=== PATIENT | female | born 1990 | race African-American/Black ===

== ENCOUNTER 2020-09-16 06:24 | Inpatient (IN) | payer OTHER ==
[2020-09-16 08:29] LABS: BASO % 0.3 % (0-2.0); EOS % 0.2 % (0-4.5); HEMATOCRIT 30.7 % (32.4-45.2); HEMOGLOBIN 10.5 GM/dL (10.7-15.3); LYMPH % 15.6 % (8-40); MCH 29.4 pg (25.7-33.7); MCHC 34.3 g/dl (32.0-36.0); MEAN CELL VOLUME 85.7 fl (80-96); MONO % 8.8 % (3.8-10.2); NEUT % 75.1 % (42.8-82.8); PLATELET COUNT 351 K/MM3 (134-434); RBC 3.58 M/mm3 (3.60-5.2); RDW 14.6 % (11.6-15.6); WHITE BLOOD COUNT 9.4 K/mm3 (4.0-10.0)
[2020-09-16 08:39] LABS: INR 1.02 (0.83-1.09); PROTHROMBIN TIME (PATIENT) 12.3 SEC (9.7-13.0)
[2020-09-16 08:41] LABS: ACTIVATED PTT 24.1 SECONDS (25.2-36.5)
[2020-09-16] MEDS ORDERED: ELECTROLYTE-148 SOLN 1,000 ML IV SCH (08:45)
[2020-09-16] MEDS ORDERED: OXYTOCIN 30 UNITS in 0.9% NS 30 UNIT/500 ML INFUS.BAG IVPB SCH (08:45)
[2020-09-16 08:51] LABS: CALCIUM 8.8 mg/dL (8.5-10.1)
[2020-09-16 08:52] LABS: ALBUMIN 2.3 g/dl (3.4-5.0)
[2020-09-16 08:55] LABS: CREATININE 0.6 mg/dL (0.55-1.3)
[2020-09-16 08:57] LABS: BILIRUBIN,TOTAL 0.2 mg/dL (0.2-1); TOT PROT 7.4 g/dl (6.4-8.2)
[2020-09-16 10:01] VITALS: BMI 31.8
[2020-09-16 11:53] LABS: HIV INTERPRETATION NEGATIVE (NEGATIVE)
[2020-09-16] MEDS ORDERED: CITRIC ACID/SODIUM CITRATE 30 ML UNIT-DOSE CUP PO ONE (15:49)
[2020-09-16] MEDS ORDERED: KETOROLAC TROMETHAMINE 30 MG/1 ML VIAL ONE ×2 (16:26→17:05)
[2020-09-16] MEDS ORDERED: ONDANSETRON 4 MG/2 ML VIAL ONE ×2 (16:26→17:05)
[2020-09-16] MEDS ORDERED: ceFAZolin SODIUM 1 GM VIAL ONE (17:05)
[2020-09-16] MEDS ORDERED: IBUPROFEN 800 MG/8 ML IJ IVPB PRN (18:16)
[2020-09-16] MEDS ORDERED: METHYLERGONOVINE MALEATE 0.2 MG/1 ML AMP IM PRN (18:16)
[2020-09-16] MEDS ORDERED: SENNOSIDES/DOCUSATE COMBO (SENNA PLUS) TABLET (UD) PO PRN (18:16)
[2020-09-16] MEDS ORDERED: oxyCODONE HCL 5 MG TABLET PO PRN (18:16)
[2020-09-16] MEDS ORDERED: ONDANSETRON 4 MG/2 ML VIAL IVPUSH PRN (18:19)
[2020-09-16] MEDS ORDERED: ACETAMINOPHEN 500 MG TABLET (FP) PO PRN (18:19)
[2020-09-16] MEDS ORDERED: OXYTOCIN 20 UNITS in 0.9% NS 20 UNIT/1,000 ML INFUS.BAG IV SCH (18:30)
[2020-09-17] MEDS: IBUPROFEN 600 MG TABLET (FP) PO PRN ×2 (05:34→16:43)
[2020-09-17] MEDS: ACETAMINOPHEN 325 MG TABLET (FP) PO PRN ×2 (05:34→16:43)
[2020-09-17 08:10] LABS: BASO % 0.1 % (0-2.0); EOS % 0.2 % (0-4.5); HEMATOCRIT 25.9 % (32.4-45.2); HEMOGLOBIN 8.9 GM/dL (10.7-15.3); LYMPH % 14.9 % (8-40); MCH 29.9 pg (25.7-33.7); MCHC 34.2 g/dl (32.0-36.0); MEAN CELL VOLUME 87.3 fl (80-96); MEAN PLT VOLUME 8.1 fl (7.5-11.1); MONO % 9.6 % (3.8-10.2); NEUT % 75.2 % (42.8-82.8); PLATELET COUNT 299 K/MM3 (134-434); RBC 2.96 M/mm3 (3.60-5.2); RDW 14.7 % (11.6-15.6); WHITE BLOOD COUNT 10.4 K/mm3 (4.0-10.0)
[2020-09-17] MEDS: PRENATAL VITAMINS W/ FOLIC ACID TABLET (FP) PO SCH (09:40)
[2020-09-17] MEDS ORDERED: BISACODYL 10 MG SUPP.RECT RC PRN (18:17)
[2020-09-18] MEDS: IBUPROFEN 600 MG TABLET (FP) PO PRN ×3 (02:26→22:27)
[2020-09-18] MEDS: ACETAMINOPHEN 325 MG TABLET (FP) PO PRN ×3 (02:26→18:04)
[2020-09-18] MEDS: PRENATAL VITAMINS W/ FOLIC ACID TABLET (FP) PO SCH (11:29)
[2020-09-18] MEDS: oxyCODONE HCL 5 MG TABLET PO PRN ×2 (18:03→22:28)
[2020-09-18] MEDS: SIMETHICONE 80 MG TAB.CHEW (FP) PO PRN (22:27)
[2020-09-19] MEDS: SIMETHICONE 80 MG TAB.CHEW (FP) PO PRN ×2 (07:07→11:41)
[2020-09-19] MEDS: oxyCODONE HCL 5 MG TABLET PO PRN (07:08)
[2020-09-19] MEDS: IBUPROFEN 600 MG TABLET (FP) PO PRN ×2 (07:11→11:41)
[2020-09-19 09:12] VITALS: BP 100/68; PULSE 92; TEMP 98.2
[2020-09-19] MEDS: PRENATAL VITAMINS W/ FOLIC ACID TABLET (FP) PO SCH (09:37)
== END 2020-09-19 13:00 | disposition home or self-care (01) | DRG 788 ==
LOC: JLDR 06:24 → J3W 20:02
PROVIDERS: ADMIT Obstetrics & Gynecology; ATTEND Obstetrics & Gynecology
PROC: 10D00Z1 Extraction of Products of Conception, Low, Open Approach (ICD-10-PCS; principal; 2020-09-16)
DX: O76 Abnormality in fetal heart rate and rhythm complicating labor and delivery (principal); O77.0 Labor and delivery complicated by meconium in amniotic fluid; O48.0 Post-term pregnancy; Z3A.40 40 weeks gestation of pregnancy; Z37.0 Single live birth
CPT/HCPCS: 36415; 80053; 85025; 85461; 85610; 85730; 86780; 86850; 86900; 86901; 86999; 87389; 88307-TC; C9803; U0003; U0005